=== PATIENT | male | born 1995 | race Caucasian/White ===

== ENCOUNTER 2021-01-13 12:20 | Outpatient (REF) | payer OTHER, SELFPAY ==
[2021-01-13 14:02] LABS: COVID-19 Test Negative (Negative)
== END 2021-01-13 12:21 | disposition home or self-care (01) ==
LOC: HO.LAB 12:20
PROVIDERS: PCP Internal Medicine; Visit Provider Internal Medicine
DX: Z20.822 Contact with and (suspected) exposure to COVID-19 (principal)
CPT/HCPCS: 36415; 87635; C9803

== ENCOUNTER 2023-11-22 10:52 | Emergency (ER) | payer OTHER, SELFPAY ==
[2023-11-22 10:58] VITALS: BP 164/93; PULSE 105; RESP 16; TEMP 36.4; O2SAT 100; BMI 29.8
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
[2023-11-22 11:12] VITALS: BP 190/89; PULSE 99; RESP 12; TEMP 36.9; O2SAT 97
[2023-11-22] MEDS: Silver Sulfadiazine 1 % Cream 20 GM TUBE 1 APPL TOPICAL (11:33)
[2023-11-22] MEDS: Diphth,Pertus(ACell),Tet Adult 0.5 ML SYRINGE IM (11:34)
[2023-11-22 11:45] VITALS: BP 160/80; PULSE 99; RESP 18; TEMP 36.9; O2SAT 97
== END 2023-11-22 11:46 | disposition home or self-care (01) ==
LOC: HO.ED 11:29
PROVIDERS: Emergency Provider Emergency Medicine; PCP Internal Medicine
DX: T25.222A Burn of second degree of left foot, initial encounter (principal); T25.232A Burn of second degree of left toe(s) (nail), initial encounter; T31.0 Burns involving less than 10% of body surface; X10.2XXA Contact with fats and cooking oils, initial encounter; Y93.G3 Activity, cooking and baking; Y92.010 Kitchen of single-family (private) house as the place of occurrence of the external cause; Y99.9 Unspecified external cause status; Z23 Encounter for immunization
CPT/HCPCS: 16000; 90471; 90715; 99282; 99284

== ENCOUNTER 2023-12-01 11:19 | Emergency (ER) | payer SELFPAY ==
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
[2023-12-01 11:53] VITALS: BP 160/94; PULSE 90; RESP 16; TEMP 36.6; O2SAT 98; BMI 29.8
[2023-12-01] MEDS: Bacitracin Oint 0.9 GM PACKET 1 APPL TOPICAL (12:06)
[2023-12-01 12:38] VITALS: BP 139/91; PULSE 86; RESP 16; TEMP 36.6; O2SAT 97
== END 2023-12-01 12:39 | disposition home or self-care (01) ==
PROVIDERS: Emergency Provider Student in an Organized Health Care Education/Training Program
DX: M79.672 Pain in left foot (principal); T25.222D Burn of second degree of left foot, subsequent encounter; X10.2XXD Contact with fats and cooking oils, subsequent encounter
CPT/HCPCS: 99282; 99283